=== PATIENT | female | born 1975 | race Caucasian/White ===

== ENCOUNTER 2017-11-10 16:34 | Emergency (ER) | payer OTHER ==
[2017-11-10 16:34] VITALS: BMI 25.0
[2017-11-10 16:48] VITALS: BP 118/83; PULSE 78; RESP 16; TEMP 98.4; O2SAT 100
[2017-11-10] MEDS ORDERED: Naproxen 550 mg Tab PO STA (17:23)
--- NOTE | 2017-11-10 17:27 | C.PDOC ---
History Of Present Illness 42 y/o female with past medical history of hypothyroidism presents to the emergency department complaining of sore throat, nonproductive cough, body aches , runny nose and fever for x1 week. She denies abdominal pain, nausea/vomiting/ diarrhea, dysuria. PMD: Alice Lester Time Seen by Provider: 11/10/17 16:54 Chief Complaint (Nursing): Flu-like Symptoms History Per: Patient History/Exam Limitations: no limitations Onset/Duration Of Symptoms: Days (x1 week) Current Symptoms Are (Timing): Still Present Associated Symptoms: Fever, Sore Throat, Cough (nonproductive), Other (body aches) Ear Symptoms: Bilateral: None Past Medical History Reviewed: Historical Data, Nursing Documentation, Vital Signs Vital Signs: Last Vital Signs Temp 98.4 F 11/10/17 16:42 Pulse 78 11/10/17 16:42 Resp 16 11/10/17 16:42 BP 118/83 11/10/17 16:42 Pulse Ox 100 11/10/17 19:05 - Medical History PMH: Hypothyroidism Surgical History: Endoscopy - [facility] Procedures CLOSED ENDOSCOPIC BIOPSY OF LARGE INTESTINE (02/18/14) ESOPHAGOGASTRODUODENOSCOPY [EGD] W/CLOSED BIOPSY (02/18/14) LOCAL EXCIS BREAST LES (03/25/15) RESECTION OF GALLBLADDER, PERCUTANEOUS ENDOSCOPIC APPROACH (07/27/15) Family History: States: No Known Family Hx - Social History Hx Tobacco Use: No Hx Alcohol Use: No Hx Substance Use: No - Immunization History Hx Tetanus Toxoid Vaccination: No Hx Influenza Vaccination: No Hx Pneumococcal Vaccination: No Review Of Systems Except As Marked, All Systems Reviewed And Found Negative. Constitutional: Positive for: Fever, Other (body aches) ENT: Positive for: Nose Congestion Cardiovascular: Negative for: Palpitations Respiratory: Positive for: Cough (non productive). Negative for: Shortness of Breath Gastrointestinal: Negative for: Nausea, Vomiting, Abdominal Pain, Diarrhea Genitourinary: Negative for: Dysuria Skin: Negative for: Rash Physical Exam - Physical Exam Appears: Well, Non-toxic, No Acute Distress Skin: Normal Color, Warm, Dry Eye(s): bilateral: Normal Inspection Ear(s): Bilateral: Normal Nose: Normal (No rhinorrhea) Oral Mucosa: Moist Throat: Erythema (mild pharyngeal ), No Exudate (or tonsillar swelling. ), No Drooling Neck: Normal ROM, Supple Lymphatic: No Adenopathy Cardiovascular: Rhythm Regular Respiratory: Normal Breath Sounds, No Rales, No Rhonchi, No Wheezing Extremity: Normal ROM (upper and lower extremity), No Deformity, No Swelling Neurological/Psych: Oriented x3 ED Course And Treatment O2 Sat by Pulse Oximetry: 100 (RA) Pulse Ox Interpretation: Normal Progress Note: Initial Impression: Viral syndrome. Plan: Patient given PO Tessalon, Sudafed and Naprosyn in ED. Patient reassurred symptoms are likely viral, and that treatment is supportive. Rxs for Tessalon, Sudafed, Naprosyn and Chloraseptic spray given, and patient instructed to follow up with PMD/ clinic in 1-2 days. She understands she should return to ED if symptoms worsen. Disposition Counseled Patient/Family Regarding: Diagnosis, Need For Followup, Rx Given - Disposition Referrals: Alice Lester MD [Staff Provider] - Disposition: HOME/ ROUTINE Disposition Time: 17:30 Condition: STABLE Additional Instructions: FOLLOW UP WITH YOUR DOCTOR IN 1-2 DAYS DRINK PLENTY OF FLUIDS USE MEDICATIONS DIRECTED RETURN TO ER IF SYMPTOMS WORSEN Prescriptions: Benzonatate [Tessalon Per[place]] 100 mg PO BID PRN #15 sgl PRN Reason: Cough Naproxen 375 mg PO BID PRN #20 tablet PRN Reason: pain Phenol/Glycerin [Chloraseptic [place]] 1 spray MM Q6 PRN #1 spray PRN Reason: THROAT PAIN Pseudoephedrine [Sudafed] 60 mg PO Q6 PRN #12 tab PRN Reason: Nasal Congestion Instructions: Viral Syndrome (DC) Forms: [employer] (Citizen Of [place]) Print Language: HAITIAN - POA Present On Arrival: None - Clinical Impression Clinical Impression: Viral syndrome
[2017-11-10] MEDS ORDERED: Naproxen 550 mg Tab PO ONE (17:32)
== END 2017-11-10 17:44 | disposition home or self-care (01) ==
LOC: C.ER 16:34
DX: B34.9 Viral infection, unspecified (principal)

== ENCOUNTER 2018-09-07 11:30 | Emergency (ER) | payer OTHER ==
[2018-09-07 11:30] VITALS: BMI 25.0
[2018-09-07 11:56] VITALS: RESP 16; TEMP 98.6
[2018-09-07 11:57] VITALS: O2SAT 98
[2018-09-07] MEDS ORDERED: Sodium Chloride 0.9% 1,000 ML IV ONE (11:57)
--- NOTE | 2018-09-07 12:04 | C.PDOC ---
History Of Present Illness 43 year old female with a PMHx of cholecystectomy presents to the ED for evaluation of abdominal pain that radiates to the right lower quadrant associated with nausea for 2 days. The patient reports having normal bowel movement. She denies fever, chills, vomiting, and any other associated symptoms. Time Seen by Provider: 09/07/18 11:54 Chief Complaint (Nursing): Abdominal Pain History Per: Patient History/Exam Limitations: no limitations Onset/Duration Of Symptoms: Days (x2) Current Symptoms Are (Timing): Still Present Location Of Pain/Discomfort: Diffuse, RLQ Radiation Of Pain To:: None Associated Symptoms: Nausea. denies: Fever, Chills, Vomiting Recent travel outside of the [place]: No Past Medical History Reviewed: Historical Data, Nursing Documentation, Vital Signs Vital Signs: Last Vital Signs Temp 98.6 F 09/07/18 11:53 Pulse 74 09/07/18 11:53 Resp 16 09/07/18 11:53 BP Pulse Ox 98 09/07/18 11:53 - Medical History PMH: Hyperthyroidism, Hypothyroidism Denies: Gastritis, Chronic Kidney Disease Surgical History: Endoscopy - [facility] Procedures CLOSED ENDOSCOPIC BIOPSY OF LARGE INTESTINE (02/18/14) ESOPHAGOGASTRODUODENOSCOPY [EGD] W/CLOSED BIOPSY (02/18/14) LOCAL EXCIS BREAST LES (03/25/15) RESECTION OF GALLBLADDER, PERCUTANEOUS ENDOSCOPIC APPROACH (07/27/15) Family History: States: Unknown Family Hx - Social History Hx Tobacco Use: No Hx Alcohol Use: No Hx Substance Use: No - Immunization History Hx Tetanus Toxoid Vaccination: No Hx Influenza Vaccination: No Hx Pneumococcal Vaccination: No Review Of Systems Constitutional: Negative for: Fever, Chills Gastrointestinal: Positive for: Nausea, Abdominal Pain (radiates to the right lower quadrant.). Negative for: Vomiting Physical Exam - Physical Exam Appears: Non-toxic, No Acute Distress Skin: Warm, Dry Head: Atraumatic, Normacephalic Eye(s): bilateral: Normal Inspection Oral Mucosa: Moist Neck: Normal ROM Chest: Symmetrical Cardiovascular: Rhythm Regular, No Murmur Respiratory: Normal Breath Sounds, No Rales, No Rhonchi, No Wheezing Gastrointestinal/Abdominal: Soft, Tenderness (Diffuse abdominal tenderness.), No Distention, No Guarding, No Rebound Extremity: Normal ROM (x4) Neurological/Psych: Oriented x3, Normal Speech, Normal Cognition ED Course And Treatment - Laboratory Results Result Diagrams: 09/07/18 12:10 09/07/18 12:10 O2 Sat by Pulse Oximetry: 98 (RA) Pulse Ox Interpretation: Normal Reassessment Condition: Improved (Abdomen soft , non tender) Medical Decision Making Medical Decision Making: Initial plan: -Blood sent. -CT ABD Pelvis IV Contrast only -Urine culture -HCG Urine -Urine culture Progress/Update: Patient stable for discharge home. Prescribed Pepcid and advised to return to the ED if symptoms worsen. Disposition Counseled Patient/Family Regarding: Studies Performed, Diagnosis, Need For Fo llowup, Rx Given - Disposition Disposition: HOME/ ROUTINE Disposition Time: 15:16 Condition: STABLE Prescriptions: Dicyclomine [Dicyclomine HCl] 10 mg PO TID #15 cap Famotidine [Pepcid AC] 20 mg PO DAILY #14 tablet Instructions: Acute Abdomen (Belly Pain) Forms: [facility] [employer] (Telugu), General Discharge Instructions - Clinical Impression Clinical Impression: Abdominal pain - Scribe Statement The provider has reviewed the documentation as recorded by the Scribe (Mariaa Yarbrough) Provider Attestation: All medical record entries made by the Scribe were at my direction and personally dictated by me. I have reviewed the chart and agree that the record accurately reflects my personal performance of the history, physical exam, medic al decision making, and the department course for this patient. I have also personally directed, reviewed, and agree with the discharge instructions and disposition.
[2018-09-07 12:11] LABS: HCG,QUALITATIVE URINE NEGATIVE (NEGATIVE)
[2018-09-07 12:12] LABS: SQUAMOUS EPITHIAL 5 /hpf (0-5); URINE BACTERIA MOD (<OCC); URINE BILIRUBIN NEGATIVE (NEGATIVE); URINE BLOOD NEGATIVE (NEGATIVE); URINE CLARITY Clear (Clear); URINE COLOR Straw (YELLOW); URINE GLUCOSE (UA) NORMAL (Normal); URINE LEUKOCYTE ESTERASE NEG Leu/uL (Negative); URINE PROTEIN NEGATIVE (NEGATIVE); URINE UROBILINOGEN NORMAL mg/dL (0.2-1.0)
[2018-09-07 12:13] LABS: BASO % 0.4 % (0.0-2.0); EOS # 0.2 K/uL (0.0-0.7); EOS % 2.7 % (0.0-4.0); LYMPH # 3.1 K/uL (1.0-4.3); LYMPH % 34.5 % (20.0-40.0); MEAN CELL VOLUME 91.9 fL (81.0-99.0); MEAN CORPUSCULAR HEMOGLOBIN 31.8 pg (27.0-31.0); MEAN CORPUSCULAR HGB CONC 34.6 g/dL (33.0-37.0); MEAN PLATELET VOLUME 7.5 fL (7.2-11.7); MONO # 0.6 K/uL (0.0-0.8); MONO % 6.6 % (0.0-10.0); NEUT # 4.9 K/uL (1.8-7.0); NEUT % 55.8 % (50.0-75.0); RBC 4.39 Mil/uL (3.80-5.20); RED CELL DISTRIBUTION WIDTH 12.2 % (11.5-14.5); WHITE BLOOD COUNT 8.9 K/uL (4.8-10.8)
[2018-09-07 12:27] LABS: ALB/GLOB RATIO 1.2 (1.0-2.1); ALBUMIN 4.9 g/dL (3.5-5.0); ALT/SGPT 39 U/L (9-52); AST/SGOT 44 U/L (14-36); BLOOD UREA NITROGEN 12 mg/dL (7-17); CALCIUM 9.7 mg/dl (8.6-10.4); GFR NON-AFRICAN AMERICAN > 60; LIPASE 159 U/L (23-300)
[2018-09-07] MEDS ORDERED: Iodixanol 320 mg/ml 150 ml Bottle IV ONE (13:03)
--- NOTE | 2018-09-07 14:29 | CT ---
Date of service: 09/07/2018 PROCEDURE: CT Abdomen and Pelvis with contrast HISTORY: abd pain COMPARISON: Abdomen pelvis CT without contrast 03/17/2014. TECHNIQUE: Following the intravenous administration of iodinated contrast material, a CT examination of the abdomen and pelvis was performed from the domes of the diaphragms to the symphysis pubis with reformatted datasets provided in axial, sagittal and coronal planes. Oral contrast was not administered as per referring physician request. Contrast dose: Visipaque 320, 100 cc Radiation dose: Total exam DLP = 845.28 mGy-cm. This CT exam was performed using one or more of the following dose reduction techniques: Automated exposure control, adjustment of the mA and/or kV according to patient size, and/or use of iterative reconstruction technique. FINDINGS: LOWER THORAX: Unremarkable. LIVER: Unremarkable. No gross lesion or ductal dilatation. GALLBLADDER AND BILE DUCTS: Interval cholecystectomy now evident. PANCREAS: Unremarkable. No gross lesion or ductal dilatation. SPLEEN: Unremarkable. ADRENALS: Unremarkable. No mass. KIDNEYS AND URETERS: Unremarkable. No hydronephrosis. No solid mass. VASCULATURE: Unremarkable. No aortic aneurysm. No aortic atherosclerotic calcification or mural plaque present. BOWEL: Unremarkable. No obstruction. No gross mural thickening. APPENDIX: Normal appendix. PERITONEUM: Trace pelvic fluid of uncertain origin. Consider possible adnexal cyst rupture although none is appreciated at this time. LYMPH NODES: Unremarkable. No enlarged lymph nodes. BLADDER: Unremarkable. REPRODUCTIVE: Unremarkable. BONES: No acute fracture. OTHER FINDINGS: None. IMPRESSION: Trace pelvic fluid of uncertain origin. Consider possible adnexal cyst rupture although none is appreciated at this time. Interval cholecystectomy.
[2018-09-07 15:05] VITALS: BP 108/53; PULSE 76
== END 2018-09-07 15:31 | disposition home or self-care (01) ==
LOC: C.ER 11:30
DX: R10.31 Right lower quadrant pain (principal)
CPT/HCPCS: 74177; 80053; 81001; 83690; 84703; 85025; 87086; 96361; 96374; 96375; 99284; J1885; J2405; J7030; Q9967

== ENCOUNTER 2018-09-09 10:19 | Outpatient (CLI) | payer OTHER | END 2018-09-09 10:20 | disposition home or self-care (01) | LOC: C.RADIC 10:19 | DX: M54.5 Low back pain (principal) ==

== ENCOUNTER 2018-09-20 09:29 | Outpatient (CLI) | payer OTHER | END 2018-09-20 09:30 | disposition home or self-care (01) | LOC: C.RADIC 09:29 | DX: R07.89 Other chest pain (principal) ==